=== PATIENT | female | born 1980 | race Caucasian/White ===

== ENCOUNTER 2018-06-17 17:26 | Observation (INO) | payer BC | END 2018-06-17 19:00 | disposition home or self-care (01) | LOC: MW.OBCHECK 17:26 → MW.OB 17:29 → MW.OBCHECK 18:07 → MW.OB 18:07 | PROVIDERS: ADMIT Obstetrics & Gynecology; ATTEND Obstetrics & Gynecology | DX: O99.89 Other specified diseases and conditions complicating pregnancy, childbirth and the puerperium (principal); N89.8 Other specified noninflammatory disorders of vagina; Z3A.38 38 weeks gestation of pregnancy | CPT/HCPCS: 59025; 84112 ==

== ENCOUNTER 2021-12-20 08:22 | Day surgery (SDC) | payer BC, OTHER ==
[~2021-12-20 08:22] MED LIST: Albuterol 0.083% 2.5 MG/3 ML Neb Soln NEB PRN; Clindamycin Phosphate in D5W 900 MG in Premix Bag 1 BAG IV SCH; DEXTROSE 5% IV ONE; GENTAMICIN IV ONE; Gentamicin Pediatric 10 MG/ML 2 ML SDV IV ONE; HYDROmorphone 1 MG/ML Syringe IVPUSH PRN; Metoclopramide 10 MG/2 ML SDV IVPUSH PRN; Morphine 4 MG/ML VIAL IVPUSH PRN; Naloxone 0.4 MG/ML SDV IVPUSH PRN; Ondansetron 4 MG/2 ML SDV IVPUSH PRN; Scopolamine 1.5 MG Transdermal Patch TOP ONE; Sodium Chloride 0.9% 10 ML Syringe FLUSH PRN; Sodium Chloride 0.9% 2.5 ML Syringe FLUSH PRN; Sodium Chloride 0.9% 20 ML SDV IV PRN; WATER IV ONE; fentaNYL 50 MCG/ML SDV IVPUSH PRN
[2021-12-20] MEDS ORDERED: Lactated Ringers 1,000 ML IV SCH (08:45)
[2021-12-20] MEDS ORDERED: propofoL 0 ML ONE (09:11)
[2021-12-20] MEDS ORDERED: fentaNYL 100 MCG/2 ML SDV ONE (09:11)
[2021-12-20] MEDS ORDERED: Lidocaine 2% 5 ML SDV ONE (09:12)
[2021-12-20] MEDS ORDERED: Rocuronium Bromide 50 MG/5 ML Syringe ONE (09:12)
[2021-12-20] MEDS ORDERED: Magnesium Sulfate (4.06 MEQ/ML) 5 GM/10 ML SDV ONE (09:12)
[2021-12-20] MEDS ORDERED: Ketamine 500 mg/10 ML MDV ONE (09:13)
[2021-12-20 09:33] LABS: CARBON DIOXIDE,CO2 24.4 mmol/L (21.0-32.0)
[2021-12-20] MEDS ORDERED: Methylene Blue 50 MG/10 ML Ampule ONE (09:33)
[2021-12-20] MEDS ORDERED: Bupivacaine 0.25% 30 ML SDV ONE (09:33)
== END 2021-12-20 10:00 | disposition home or self-care (01) ==
LOC: MW.SDS 08:22
PROVIDERS: ATTEND Obstetrics & Gynecology
DX: N93.9 Abnormal uterine and vaginal bleeding, unspecified (principal); Z53.09 Procedure and treatment not carried out because of other contraindication; U07.1 COVID-19; Z88.0 Allergy status to penicillin; E66.9 Obesity, unspecified; F17.210 Nicotine dependence, cigarettes, uncomplicated; Z68.27 Body mass index [BMI] 27.0-27.9, adult; Z79.51 Long term (current) use of inhaled steroids; Z79.899 Other long term (current) drug therapy
CPT/HCPCS: 36415; 80048; 84703; 85027; 86850; 86900; 86901; 87635; A9270; J1580; J7120; J2704; J3010; J3475; J3490; U0002

== ENCOUNTER 2022-01-30 08:07 | Day surgery (SDC) | payer BC, OTHER ==
[~2022-01-30 08:07] MED LIST changes: -Albuterol 0.083% 2.5 MG/3 ML Neb Soln NEB PRN; +Bupivacaine 0.25% 30 ML SDV ONE; -DEXTROSE 5% IV ONE; -HYDROmorphone 1 MG/ML Syringe IVPUSH PRN; +Methylene Blue 50 MG/10 ML Ampule ONE; -Metoclopramide 10 MG/2 ML SDV IVPUSH PRN; -Morphine 4 MG/ML VIAL IVPUSH PRN; -Naloxone 0.4 MG/ML SDV IVPUSH PRN; -Ondansetron 4 MG/2 ML SDV IVPUSH PRN; +Propofol 200 MG/20 ML SDV ONE; +SODIUM CHLORIDE 0.9% IV ONE; -Scopolamine 1.5 MG Transdermal Patch TOP ONE; -WATER IV ONE; -fentaNYL 50 MCG/ML SDV IVPUSH PRN
[2022-01-30] MEDS ORDERED: Lactated Ringers 1,000 ML IV SCH ×2 (08:45→13:00)
[2022-01-30 08:47] LABS: CARBON DIOXIDE,CO2 27.1 mmol/L (21.0-32.0); POTASSIUM,K 4.2 mmol/L (3.5-5.1)
[2022-01-30] MEDS ORDERED: Ondansetron 4 MG/2 ML SDV IVPUSH PRN ×2 (08:54→12:51)
[2022-01-30] MEDS ORDERED: fentaNYL 50 MCG/ML SDV IVPUSH PRN (08:54)
[2022-01-30] MEDS ORDERED: Albuterol 0.083% 2.5 MG/3 ML Neb Soln NEB PRN (08:54)
[2022-01-30] MEDS ORDERED: Naloxone 0.4 MG/ML SDV IVPUSH PRN (08:54)
[2022-01-30] MEDS ORDERED: Metoclopramide 10 MG/2 ML SDV IVPUSH PRN (08:54)
[2022-01-30] MEDS ORDERED: HYDROmorphone 1 MG/ML Syringe IVPUSH PRN (08:54)
[2022-01-30] MEDS ORDERED: Ketamine 500 mg/10 ML MDV ONE (08:55)
[2022-01-30] MEDS ORDERED: Propofol 200 MG/20 ML SDV ONE ×3 (08:55→12:12)
[2022-01-30] MEDS ORDERED: fentaNYL 250 MCG/5 ML SDV ONE (08:55)
[2022-01-30] MEDS ORDERED: Lidocaine 2% 5 ML SDV ONE (08:58)
[2022-01-30] MEDS ORDERED: Magnesium Sulfate (4.06 MEQ/ML) 5 GM/10 ML SDV ONE (08:58)
[2022-01-30] MEDS ORDERED: Phenylephrine HCl In 0.9% NaCl 1 MG/10 ML Vial ONE (09:53)
[2022-01-30] MEDS ORDERED: Dexamethasone 4 MG/ML 5 ML MDV ONE (09:59)
[2022-01-30] MEDS ORDERED: ePHEDrine 50 MG/ML SDV ONE (10:21)
[2022-01-30] MEDS ORDERED: Fluorescein 5 ML Vial ONE (10:22)
[2022-01-30] MEDS ORDERED: Furosemide 40 MG/4 ML VIAL ONE (10:37)
[2022-01-30] MEDS ORDERED: Sugammadex Sodium 200 MG/2 ML VIAL ONE (10:37)
[2022-01-30] MEDS ORDERED: Ketorolac 30 MG/ML SDV ONE (10:37)
[2022-01-30] MEDS ORDERED: Ondansetron 4 MG/2 ML SDV ONE (10:37)
[2022-01-30] MEDS ORDERED: Ketorolac 30 MG/ML SDV IVPUSH ONE (12:51)
[2022-01-30] MEDS ORDERED: Acetaminophen/oxyCODONE 325-5 MG Tab PO PRN (12:51)
[2022-01-30] MEDS ORDERED: Promethazine 25 MG/ML SDV IM PRN (12:51)
[2022-01-30] MEDS ORDERED: Gentamicin Pediatric 10 MG/ML 2 ML SDV IV SCH (13:00)
[2022-01-30] MEDS: Ketorolac 30 MG/ML SDV IVPUSH PRN ×2 (15:12→21:15)
[2022-01-30] MEDS: Clindamycin Phosphate in D5W 600 MG in Premix Bag 50 BAG IV SCH ×2 (16:53)
[2022-01-30] MEDS ORDERED: Gentamicin 110 MG in Sodium Chloride 0.9% 100 ML IV SCH (17:00)
[2022-01-30] MEDS: SODIUM CHLORIDE 0.9% IV SCH (17:35)
[2022-01-30] MEDS: GENTAMICIN IV SCH (17:35)
[2022-01-30] MEDS: Belladonna Alkaloids/Opium 16.2-30 MG Supp RECTAL PRN ×2 (17:55→22:04)
[2022-01-30] MEDS: Morphine 4 MG/ML VIAL IVPUSH PRN ×2 (18:12→23:43)
[2022-01-30] MEDS: Docusate Sodium 100 MG Cap PO SCH (21:15)
[2022-01-31] MEDS: Clindamycin Phosphate in D5W 600 MG in Premix Bag 50 BAG IV SCH ×4 (01:08→09:13)
[2022-01-31] MEDS: GENTAMICIN IV SCH ×2 (01:51→09:53)
[2022-01-31] MEDS: SODIUM CHLORIDE 0.9% IV SCH ×2 (01:51→09:53)
[2022-01-31] MEDS: Ketorolac 30 MG/ML SDV IVPUSH PRN (03:16)
[2022-01-31] MEDS: Morphine 4 MG/ML VIAL IVPUSH PRN (05:26)
[2022-01-31 05:59] LABS: CARBON DIOXIDE,CO2 25.2 mmol/L (21.0-32.0); POTASSIUM,K 4.2 mmol/L (3.5-5.1)
[2022-01-31] MEDS: Acetaminophen/oxyCODONE 325-5 MG Tab PO PRN ×3 (07:58→15:36)
[2022-01-31] MEDS ORDERED: Iopamidol 755 MG/ML 500 ML Multipack Bottle IVPUSH STA (08:26)
[2022-01-31] MEDS: Docusate Sodium 100 MG Cap PO SCH (09:14)
== END 2022-01-31 15:38 | disposition home or self-care (01) ==
LOC: MW.SDS 08:07 → MW.OB 08:07 → MERGE 09:45 → MW.SDS 01-31 15:38
PROVIDERS: ATTEND Obstetrics & Gynecology
DX: N80.0 Endometriosis of uterus (principal); F17.210 Nicotine dependence, cigarettes, uncomplicated; Z88.0 Allergy status to penicillin; Z79.899 Other long term (current) drug therapy; Z90.49 Acquired absence of other specified parts of digestive tract; Z98.890 Other specified postprocedural states
CPT/HCPCS: 36415; 51860; 58552; 74177; 80048; 84703; 85025; 85027; 86850; 86900; 86901; A9270; J0131; J1100; J1170; J1580; J1885; J1940; J2270; J2704; J3010; J3475; J3490; J7030; J7120; Q9967; 00944; J2405